=== PATIENT | female | born 1970 | race Caucasian/White ===

== ENCOUNTER 2019-09-14 20:07 | Emergency (ER) | payer BC, SELFPAY ==
--- NOTE | ~2019-09-14 | XR_ITS ---
EXAMINATION: XR chest 1V portable DATE: 09/14/2019 20:32 INDICATION: Palpitations TECHNIQUE: frontal view of the chest was obtained. COMPARISON: None FINDINGS: The lungs are clear with no focal airspace opacities, pulmonary edema, pleural effusion or pneumothor ax. The cardiomediastinal silhouette is normal. Visualized bones and soft tissues are unremarkable. IMPRESSION: 1. Normal chest radiograph. Reviewed, dictated and finalized at location A. LITY ATTENDANT IMPRESSION: 1. Normal chest radiograph.
[2019-09-14 20:12] VITALS: BP 117/96; PULSE 215; RESP 18; TEMP 36.7; O2SAT 100
[2019-09-14] MEDS: SODIUM CHLORIDE 0.9% IV 1,000 ML 999 ML (20:15)
--- NOTE | 2019-09-14 20:16 | ED.ARRPALP ---
HPI - Arrhythmia/Palpitations General Chief Complaint: Arrhythmia/Palpitations Stated Complaint: palpitations, dizzy Time Seen by Provider: 09/14/19 20:14 Source: patient and RN notes reviewed Mode of arrival: ambulatory Limitations: no limitations History of Present Illness HPI narrative: A 48 y/o female presents to the ED with intermittent heart palpitations and increased heart rate since 2 PM today. She states that she developed it while she was at work, so when she got home she took a nap which seemed to alleviate her palpitations. She notes she developed palpitations and a HR in the 200s while she was sitting on the couch, so she decided to come to the ED. She also notes some intermittent SOB .. She denies any CP, fevers, chills, N/V/D, ABD pain, back pain, or pain of any kind at this time. MD complaint: rapid heart beat and palpitations Onset (ago): hour(s) (6.5) Time: 14:00 Duration: intermittent Context: occurred during rest Associated symptoms: shortness of breath and other (heartburn) Related Data Allergies Allergy/AdvReac Type Severity Reaction Status Date / Time No Known Allergies Allergy Mild Unverified 05/09/05 20:17 Review of Systems Review of Systems: All systems reviewed & are unremarkable except as noted in HPI and below Constitutional: Constitutional: Denies chills and Denies fever(s) Cardiovascular: Cardiovascular: Denies chest pain, Reports rapid heart rate and Reports palpitations Respiratory: Respiratory: Reports dyspnea Gastrointestinal: Gastrointestinal: Denies abdominal pain, Reports heartburn, Denies diarrhea, Denies nausea and Denies vomiting Musculoskeletal: Musculoskeletal: Denies back pain PMFSH Past Medical History Medical History (Updated 09/14/19 @ 23:00 by Elias Chavez DO) Depression Hx of melanoma of skin Surgical History Surgical History (Updated 09/14/19 @ 20:39 by Fritz Garcia) History of dilation and curettage Hx of melanoma excision Previous section Social History Social History (Updated 09/14/19 @ 20:39 by Fritz Garcia) Smoking status: Never smoker Comments PCP: Dr. Lancaster. Exam Narrative: Exam Narrative: APPEARANCE: No acute distress, nontoxic, resting in bed EYES: EOMI HEENT: Normocephalic, atraumatic, OMM RESPIRATORY: No respiratory distress Clear to auscultation bilaterally with no rhonchi wheezing or rales. CARDIOVASCULAR: Tachycardic and regular without murmurs rubs or gallops. ABDOMINAL: Soft, nontender, nondistended, no rebound or guarding MUSCULOSKELETAl: Moves all extremities. No clubbing, cyanosis or edema. NEURO: Awake and alert. Following commands, speech normal, no focal deficits SKIN:: Warm, dry. No rashes lesions or abrasions PSYCHIATRIC: Normal affect/mood, Course Course Emergency Course: Called and discussed with Dr. lee presentation work-up. We discussed the patient's initial troponin. This time he feels the patient may be discharged home. Recommends patient be started metoprolol 12.5 mg twice daily. Believes troponin elevation is secondary to patient's elevated heart rate since 1400 Called back and discussed with Dr. lee following the patient's repeat troponin. This time still feels likely secondary to SVT with patient having no chest pain with the symptoms feels patient will be discharged with follow-up as an outpatient Discussed with patient results of workup and diagnosis. Discussed need for follow-up with primary care, proper use of medication, and reasons to return to the emergency department. Patient understands and agrees to current treatment plan Prior to discharge again discussed with patient. States she never had any episode of chest pain with SVT Vital Signs Vital signs: Vital Signs Temperature 98.1 F 09/14/19 20:12 Pulse Rate 215 H 09/14/19 20:12 Respiratory Rate 18 09/14/19 20:12 Blood Pressure 117/96 H 09/14/19 20:12 Pulse Oximetry 100 09/14/19 20:12 Temperature 98.1 F 09/14/19 20:12
[2019-09-14] MEDS: ADENOSINE IV SOLN 6 MG/2 ML VIAL 12 MG (20:20)
--- NOTE | 2019-09-14 20:26 | PC.NURSE ---
At 2015 EDP in room with patient, this nurse and 3 other RN's. EDP perform's vagal maneuver with no success. 2017VORB EDP orders 6mg of Adenosine rapid IVP. Success with rapid IVP of adenosine with EDP at bedside. Patient tolerated well.
--- NOTE | 2019-09-14 20:34 | ECG_ITS ---
Measurements Intervals [place] Rate: 215 P: [place]: 0 QRS: 109 QRSD: 84 T: 265 QT: 196 QTc: 371 Interpretive Statements SUPRAVENTRICULAR TACHYCARDIA ST-T WAVE ABNORMALITY IN ANTEROLAT/INF LEADS- CONSIDER ISCHEMIA OR RATE RELATED BASELINE WANDER- I, II, AVR, AVL, AVF ABNORMAL ECG Electronically Signed On 09-15-2019 6:39:57 SET UP WORKER by Taz Nava D.O.
--- NOTE | 2019-09-14 20:34 | ECG_ITS ---
Measurements Intervals [place] Rate: 111 P: 67 HI: 124 QRS: 29 QRSD: 93 T: 51 QT: 303 QTc: 413 Interpretive Statements SINUS TACHYCARDIA ABNORMAL ECG Electronically Signed On 09-15-2019 6:40:19 BORDER INSPECTOR by Taz Nava D.O.
[2019-09-14 20:40] LABS: Basophils Absolute Auto 0.1 K/mm3 (0.0-0.1); Eosinophils Absolute Auto 0.3 K/mm3 (0-0.3); Eosinophils Percent Auto 3.2 % (0-4.4); Hematocrit 43.1 % (37.0-47.0); Hemoglobin 14.3 g/dL (12.0-15.0); Immature Granulocyte Absolute 0.02 K/mm3 (0.00-0.031); Immature Granulocyte Percent A 0.2 % (0-0.5); Lymphocytes Absolute Auto 2.96 K/mm3 (0.9-3.2); Lymphocytes Percent Auto 32.5 % (18.3-44.2); Mean Corpuscular HGB Conc 33.2 g/dl (32-36); Mean Corpuscular Hemoglobin 30.4 pg (26-34); Mean Corpuscular Volume 91.7 fl (80-100); Mean Platelet Volume 9.1 fl (7.4-10.4); Monocytes Absolute Auto 0.9 K/mm3 (0.1-0.6); Monocytes Percent Auto 9.8 % (2.6-8.5); Neutrophils Absolute Auto 4.9 K/mm3 (1.3-6.7); Neutrophils Percent Auto 53.3 % (45.5-73.1); Platelet Count Result 404 k/mm3 (150-375); Red Cell Distribution Width 12.3 % (11.5-14.5); White Blood Count 9.1 K/mm3 (4.5-10.0)
[2019-09-14 20:50] LABS: INR 0.9; Partial Thromboplastin Time 26.1 SECONDS (22.3-36.8); Prothrombin Time 11.7 Seconds (11.1-14.7)
[2019-09-14 20:51] LABS: Alanine Aminotransferase 17 U/L (4-35); Albumin Level 4.5 g/dL (3.5-5.1); Alkaline Phosphatase 53 U/L (38-126); Aspartate Amino Transferase 18 U/L (14-36); Bilirubin,Total 0.3 mg/dL (0.2-1.3); Blood Urea Nitrogen 12 mg/dL (7-17); Calcium 9.4 mg/dL (8.4-10.2); Carbon Dioxide 27 mmol/L (22-30); Chloride 98 mmol/L (98-107); Estimated Glomerular Filt Rate > 60; Glucose 99 mg/dL (65-105); Magnesium 1.7 mg/dL (1.6-2.3); Potassium 3.6 mmol/L (3.4-5.0); Sodium 135 mmol/L (137-145)
[2019-09-14 21:07] LABS: Troponin I 0.258 ng/mL (0.000-0.034)
[2019-09-14 22:20] VITALS: PULSE 91
[2019-09-14] MEDS: METOPROLOL TARTRATE 12.5 MG TABLET PO (22:20)
[2019-09-14 23:35] LABS: Troponin I 0.506 ng/mL (0.000-0.034)
--- NOTE | 2019-09-14 23:38 | ECG_ITS ---
Measurements Intervals [place] Rate: 73 P: 63 AK: 156 QRS: 25 QRSD: 88 T: 26 QT: 380 QTc: 419 Interpretive Statements SINUS RHYTHM NORMAL ECG Electronically Signed On 09-15-2019 6:47:15 MUTUEL CLERK by Taz Nava D.O.
[2019-09-14 23:50] VITALS: PULSE 80; RESP 20; O2SAT 100
[2019-09-15 00:17] VITALS: BP 110/75; PULSE 81; RESP 17; O2SAT 100
== END 2019-09-15 00:15 | disposition home or self-care (01) ==
PROVIDERS: Emergency Provider Emergency Medicine; PCP Family Medicine
DX: R00.0 Tachycardia, unspecified (principal); F32.9 Major depressive disorder, single episode, unspecified
CPT/HCPCS: 36415; 71045; 80053; 83735; 84484; 85025; 85610; 85730; 93005; 96361; 96374; 99284; A9270; J0153; J7030

== ENCOUNTER 2019-09-22 14:36 | Outpatient (CLI) | payer BC, SELFPAY ==
--- NOTE | 2019-09-22 14:50 | ECHO_ITS ---
Patient Info Name: Cindy Hanks Age: 48 years : 1970 Gender: Female Ht: 66 in Wt: 191 lbs BSA: 2.04 m2 HR: 70 bpm BP: 128 / 80 mmHg Heart Rhythm: Sinus Rhythm Technical Quality: Good Exam Date: 09/22/2019 3:13 PM Exam Location: [facility] Patient Status: Outpatient Admit Date: 09/22/2019 Staff Ordering Physician: Taz Nava DO Supply Chain Project Manager: Panchito Joya RDCS Attending Provider: Taz Nava DO Referring Physician: Elijah REECE; Exam Type: CA echo doppler color flow Study Info Indications I47.1 - Supraventricular tachycardia Complete two-dimensional, color flow and Doppler transthoracic echocardiogram is performed. Strain analysis performed. History/Risk Factors Supraventricular tachycardia. Summary 1. Left ventricular chamber dimension is normal. 2. Left ventricular systolic function is normal, estimated at 60-65%. 3. The left ventricular diastolic function is normal. 4. E/e' 7 is not elevated. 5. Global longitudinal strain is normal at -20.6%. 6. There is trace mitral valve regurgitation. 7. No pulmonary hypertension, estimated pulmonary arterial systolic pressure is 30 mmHg. Left Ventricle E/e' 7 is not elevated. Global longitudinal strain is normal at -20.6%. Left ventricular chamber dimension is normal. Left ventricular systolic function is normal, estimated at 60-65%. The left ventricular diastolic function is normal. Right Ventricle Right ventricular chamber dimension is normal. Right ventricular systolic function is normal. Left Atria Left atrial chamber dimension is normal. Right Atria Right atrial chamber dimension is normal. Aortic Valve The aortic valve is trileaflet. There is no aortic valve stenosis. There is no aortic valve regurgitation. Pulmonic Valve There is no pulmonic regurgitation. Mitral Valve There is no mitral valve stenosis. There is trace mitral valve regurgitation. Tricuspid Valve There is no tricuspid valve regurgitation. No pulmonary hypertension, estimated pulmonary arterial systolic pressure is 30 mmHg. Pericardium/Pleural There is no pericardial effusion. Inferior Vena Cava Normal inferior vena cava with >50% collapse upon inspiration consistent with normal right atrial pressure, 5 mmHg. Aorta The aortic root size at the sinus of Valsalva is normal. Left Ventricular Outflow Tract Name Value Normal LVOT 2D LVOT Diameter 1.8 cm LVOT Doppler LVOT Peak Gradient 6 mmHg LVOT Mean Gradient 3 mmHg LVOT VTI 23 cm LVOT VTI/AV VTI Ratio 0.7 LVOT Stroke Volume 61 ml LVOT CO 4.1 l/min LVOT CI 2.0 l/min/m2 Mitral Valve Name Value Normal MV Doppler
== END 2019-09-22 14:37 | disposition home or self-care (01) ==
LOC: ANHCARD 14:37
PROVIDERS: PCP Family Medicine; Visit Provider Internal Medicine Cardiovascular Disease
DX: I47.1 Supraventricular tachycardia (principal)
CPT/HCPCS: 93306

== ENCOUNTER 2020-04-16 20:10 | Emergency (ER) | payer BC, SELFPAY ==
--- NOTE | ~2020-04-16 | XR_ITS ---
XR chest 1V portable DATE: 04/16/2020 20:41 INDICATION: Arrhythmia TECHNIQUE: Portable AP chest on 04/16/2020 at 2038 hours COMPARISON: 09/14/2019 portable AP chest at 2028 hours FINDINGS: Normal heart size. No hilar or mediastinal enlargement. No pulmonary infiltrate or consolid ation, pleural effusion or pulmonary vascular congestion or pneumothorax. IMPRESSION: No active cardiopulmonary disease Reviewed, dictated and finalized at location A.
[2020-04-16 20:16] VITALS: BP 143/88; PULSE 215; RESP 20; TEMP 37.5; O2SAT 99
--- NOTE | 2020-04-16 20:19 | ECG_ITS ---
Measurements Intervals [place] Rate: 215 P: [place]: 0 QRS: 64 QRSD: 89 T: 266 QT: 197 QTc: 372 Interpretive Statements SUPRAVENTRICULAR TACHYCARDIA ST-T WAVE ABNORMALITY IN DIFFUSE LEADS- CONSIDER ISCHEMIA OR RATE RELATED ABNORMAL ECG Electronically Signed On 04-17-2020 8:20:29 CDT by Taz Nava D.O.
--- NOTE | 2020-04-16 20:26 | PC.NURSE ---
adenosine 6mg ivp by dr aden 2024
[2020-04-16 20:27] VITALS: BP 153/91; PULSE 112; RESP 18; O2SAT 99
--- NOTE | 2020-04-16 20:30 | ECG_ITS ---
Measurements Intervals [place] Rate: 103 P: 59 NC: 158 QRS: 64 QRSD: 90 T: 30 QT: 344 QTc: 451 Interpretive Statements SINUS TACHYCARDIA POSSIBLE LEFT ATRIAL ENLARGEMENT LOW QRS VOLTAGE IN PRECORDIAL LEADS BORDERLINE ECG Electronically Signed On 04-21-2020 12:42:38 CDT by Taz Nava D.O.
--- NOTE | 2020-04-16 20:30 | ED.ARRPALP ---
HPI - Arrhythmia/Palpitations General Chief Complaint: Arrhythmia/Palpitations Stated Complaint: heart racing Time Seen by Provider: 04/16/20 20:20 History of Present Illness HPI narrative: Patient is a 49-year-old female who presents ER with tachycardia. Patient has history of SVT and has not been taking her medications for a week. 30 minutes prior to arrival she began to feel her heart race. She has no chest pain or chest pressure. No shortness of breath. She has no lightheadedness. She reports she is had some coffee today but denies any other stimulants. Has had this several times in the past. Follows with Dr. Nava. Has not seen a project management consultant. She is unsure if she has had her thyroid checked. Related Data Allergies Allergy/AdvReac Type Severity Reaction Status Date / Time No Known Allergies Allergy Mild Verified 04/16/20 20:20 Review of Systems Review of Systems: All systems reviewed & are unremarkable except as noted in HPI and below Cardiovascular: Cardiovascular: Denies chest pain, Reports rapid heart rate and Denies radiating jaw, neck or arm pain Respiratory: Respiratory: Denies cough, Denies dyspnea and Denies wheezing Gastrointestinal: Gastrointestinal: Denies nausea and Denies vomiting Neurologic: Denies dizziness, Denies focal weakness and Denies numbness PMFSH Past Medical History Medical History (Updated 04/16/20 @ 22:16 by Mohit Fuchs MD) Depression Hx of melanoma of skin PSVT (paroxysmal supraventricular tachycardia) Surgical History Surgical History (Updated 09/14/19 @ 20:39 by Fritz Garcia) History of dilation and curettage Hx of melanoma excision Previous section Social History Social History (Updated 09/17/19 @ 13:14 by Jacqui العراقي CMA) Smoking status: Never smoker Alcohol intake: current Exam Narrative: Exam Narrative: GENERAL: Well-appearing, well-nourished, and in no acute distress. HEAD: Normocephalic, atraumatic. ENT: Mucous membranes moist. CHEST: Clear to auscultation. No respiratory distress. HEART: Tachycardic and regular. Bounding pulses.. Normal peripheral pulses. ABDOMEN: Soft, nontender, nondistended. EXTREMITIES: Normal range of motion. No edema. SKIN: Warm, dry, no rash. NEURO: Alert and oriented x3. Course Course Emergency Course: Patient resting comfortably. Patient is been having heart rate around 101 and 102 bpm. No recurrence of SVT. Easily converted with 6 of adenosine. Discussed case with Dr. hang. Morrell with outpatient follow-up and patient should resume her metoprolol. Vital Signs Vital signs: Vital Signs Temperature 99.5 F 04/16/20 20:16 Pulse Rate 215 H 04/16/20 20:16 Respiratory Rate 20 04/16/20 20:16 Blood Pressure 143/88 H 04/16/20 20:16 Pulse Oximetry 99 04/16/20 20:16 Temperature 99.5 F 04/16/20 20:16 Pulse Rate 103 H 04/16/20 21:04 Respiratory Rate 17 04/16/20 21:04 Blood Pressure 159/88 H 04/16/20 21:04 Pulse Oximetry 98 04/16/20 21:04 MDM - Arrhythmia/Palpitations Lab Data Result diagrams: 04/16/20 20:31 04/16/20 20:32 Labs: Lab Results 04/16/20 04/16/20 04/16/20 Range/Units 20:31 20:31 20:31 WBC 8.8 (4.5-10.0) K/mm3 RBC 4.37 (4.2-5.4) M/mm3 Hgb 13.5 (12.0-15.0) g/dL Hct 39.8 (37.0-47.0) % MCV 91.1 (80-100) fl MCH 30.9 (26-34) pg MCHC 33.9 (32-36) g/dl RDW 12.2 (11.5-14.5) % Plt Count 410 H (150-375) k/mm3 MPV 8.6 (7.4-10.4) fl Immature Gran % (Auto) 0.2 (0-0.5) % Neut % (Auto) 46.9 (45.5-73.1) % Lymph % (Auto) 36.2 (18.3-44.2) % Pepin % (Auto) 9.2 H (2.6-8.5) % Eos % (Auto) 6.4 H (0-4.4) % Baso % (Auto) 1.1 (0.2-1.2) % Lymph # (Auto) 3.18 (0.9-3.2) K/mm3 Pepin # (Auto) 0.8 H (0.1-0.6) K/mm3 Eos # (Auto) 0.6 H (0-0.3) K/mm3 Baso # (Auto) 0.1 (0.0-0.1) K/mm3 Abs Immat Gran (auto) 0.02 (0.00-0.031) K/mm3 Absolute
[2020-04-16 20:47] LABS: Basophils Absolute Auto 0.1 K/mm3 (0.0-0.1); Basophils Percent Auto 1.1 % (0.2-1.2); Eosinophils Absolute Auto 0.6 K/mm3 (0-0.3); Eosinophils Percent Auto 6.4 % (0-4.4); Hematocrit 39.8 % (37.0-47.0); Hemoglobin 13.5 g/dL (12.0-15.0); Immature Granulocyte Absolute 0.02 K/mm3 (0.00-0.031); Immature Granulocyte Percent A 0.2 % (0-0.5); Lymphocytes Absolute Auto 3.18 K/mm3 (0.9-3.2); Lymphocytes Percent Auto 36.2 % (18.3-44.2); Mean Corpuscular HGB Conc 33.9 g/dl (32-36); Mean Corpuscular Hemoglobin 30.9 pg (26-34); Mean Corpuscular Volume 91.1 fl (80-100); Mean Platelet Volume 8.6 fl (7.4-10.4); Monocytes Absolute Auto 0.8 K/mm3 (0.1-0.6); Monocytes Percent Auto 9.2 % (2.6-8.5); Neutrophils Absolute Auto 4.1 K/mm3 (1.3-6.7); Neutrophils Percent Auto 46.9 % (45.5-73.1); Platelet Count Result 410 k/mm3 (150-375); Red Blood Count 4.37 M/mm3 (4.2-5.4); Red Cell Distribution Width 12.2 % (11.5-14.5); White Blood Count 8.8 K/mm3 (4.5-10.0)
[2020-04-16] MEDS: ADENOSINE IV SOLN 6 MG/2 ML VIAL 18 MG (20:52)
[2020-04-16] MEDS: SODIUM CHLORIDE 0.9% IV 1,000 ML 999 ML (20:52)
[2020-04-16 20:57] LABS: INR 0.9; Prothrombin Time 12.2 Seconds (11.1-14.7)
[2020-04-16 20:58] LABS: Partial Thromboplastin Time 24.5 SECONDS (22.3-36.8)
[2020-04-16 20:59] LABS: Anion Gap 10 mmol/L (8-16); Blood Urea Nitrogen 12 mg/dL (7-17); Calcium 8.9 mg/dL (8.4-10.2); Carbon Dioxide 22 mmol/L (22-30); Chloride 106 mmol/L (98-107); Estimated Glomerular Filt Rate > 60; Glucose 107 mg/dL (65-105); Potassium 3.8 mmol/L (3.4-5.0); Sodium 138 mmol/L (137-145)
[2020-04-16 21:04] VITALS: BP 159/88; PULSE 103; RESP 17; O2SAT 98
[2020-04-16 21:12] LABS: Troponin I < 0.012 ng/mL (0.000-0.034)
[2020-04-16 22:20] VITALS: BP 106/69; PULSE 98; RESP 22; O2SAT 99
[2020-04-16 23:00] LABS: Free T4 Free Thyroxine Reflex 1.07 ng/dL (0.78-2.19)
[2020-04-16 23:52] LABS: Total Triiodothyronine (T3) 1.29 NG/ML (0.97-1.69)
== END 2020-04-16 22:21 | disposition home or self-care (01) ==
PROVIDERS: Emergency Provider Emergency Medicine; PCP Family Medicine
DX: I47.1 Supraventricular tachycardia (principal); Z85.820 Personal history of malignant melanoma of skin; R94.31 Abnormal electrocardiogram [ECG] [EKG]
CPT/HCPCS: 36415; 71045; 80048; 84439; 84443; 84480; 84484; 85025; 85610; 85730; 93005; 96374; 99284; J0153; J7030

== ENCOUNTER 2020-04-21 14:11 | Outpatient (CLI) | payer BC, SELFPAY ==
[2020-04-21 14:42] LABS: Cholesterol 232 mg/dL (0-200); HDL Direct 92 mg/dL; Triglycerides 86 mg/dL (<150)
[2020-04-21 14:52] LABS: LDL Cholesterol Direct 111 mg/dL
== END 2020-04-21 14:12 | disposition home or self-care (01) ==
PROVIDERS: PCP Family Medicine; Visit Provider Internal Medicine Cardiovascular Disease
DX: E66.3 Overweight (principal)
CPT/HCPCS: 36415; 80061

== ENCOUNTER → 2020-10-07 06:52 | Outpatient (CLI) | payer BC, SELFPAY ==
[2020-10-07 23:33] LABS: SARS-CoV-2 RNA PCR Negative
== END ==
PROVIDERS: PCP Family Medicine; Visit Provider Physician Assistant
DX: R05 Cough (principal); Z20.822 Contact with and (suspected) exposure to COVID-19
CPT/HCPCS: C9803; U0003; U0005

== ENCOUNTER 2023-03-06 11:17 | Outpatient (CLI) | payer BC, SELFPAY ==
[2023-03-06 13:15] LABS: LDL Cholesterol Direct 118 mg/dL
[2023-03-06 13:20] LABS: Alanine Aminotransferase 19 U/L (6-35); Albumin Level 4.5 g/dL (3.5-5.1); Alkaline Phosphatase 70 U/L (38-126); Anion Gap 9 mmol/L (8-16); Aspartate Amino Transferase 18 U/L (14-36); Bilirubin,Total 0.4 mg/dL (0.2-1.3); Blood Urea Nitrogen 10 mg/dL (7-17); Calcium 9.5 mg/dL (8.4-10.2); Carbon Dioxide 26 mmol/L (22-30); Chloride 103 mmol/L (98-107); Cholesterol 242 mg/dL (0-200); Estimated Glomerular Filt Rate > 60; Glucose 92 mg/dL (65-110); HDL Direct 71 mg/dL; Potassium 4.4 mmol/L (3.4-5.0); Sodium 138 mmol/L (137-145); Triglycerides 72 mg/dL (<150)
== END 2023-03-06 11:18 | disposition home or self-care (01) ==
PROVIDERS: PCP Family Medicine; Visit Provider Physician Assistant
DX: R53.83 Other fatigue (principal); E78.2 Mixed hyperlipidemia
CPT/HCPCS: 36415; 80053; 80061; 84439; 84443

== ENCOUNTER 2023-06-23 00:38 | Day surgery (SDC) | payer BC, SELFPAY ==
[2023-06-13 08:55] VITALS: BMI 33.7
--- NOTE | 2023-06-20 09:20 | SUR.PREOP ---
Patient called regarding upcoming procedure. Reviewed preop instructions, appointment times, and procedure prep.
--- NOTE | 2023-06-22 10:53 | P.HP_ITS ---
History of Present Illness History of Present Illness Consent: Risks, benefits, and alternatives have been discussed and questions answered. Patient agrees to proceed with procedure. Chief complaint: neoplasm screening Narrative: Cindy Hanks is a 52 year old female Referred for colon cancer screening. Review of Systems Review of Systems: All systems reviewed & are unremarkable except as noted in HPI and below PMFSH Past Medical History Medical History Depression Herpes genitalis Hx of melanoma of skin PSVT (paroxysmal supraventricular tachycardia) Screening mammogram for breast cancer Surgical History Surgical History H/O LEEP History of dilation and curettage Hx of melanoma excision Hx of prior ablation treatment Previous section Family History Family History Father Hypertension Other Cerebrovascular accident Depression Diabetes mellitus Heart disease Social History Social History Smoking status: Never smoker Second hand tobacco smoke exposure: No Alcohol intake: current Drinks per week: 5 Substance use: never Substance use type: does not use Lack of Transportation: No Lack of Food: Never True Current Housing: I Have Housing Concerned About Future Housing: No Difficulty Paying Gas/Electric Bills: No Difficulty Paying for Meds: No Currently Unemployed: No Living arrangements: with family Occupation/Education: occupation 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 Gender identity (if verbalized by the patient): Female Sexual Orientation (if Verbalized by the Patient): Straight or Heterosexual Spiritual care concerns: No Agree to blood products: Yes Meds Home Medications and Allergies Home Medications Medication Instructions Recorded Confirmed Type escitalopram oxalate 10 mg tablet 10 mg PO DAILY #90 tabs 10/22/22 06/23/23 Rx Allergies Allergy/AdvReac Type Severity Reaction Status Date / Time No Known Allergies Allergy Mild Verified 06/23/23 08:30 Exam Resp: Auscultation: clear to auscultation bilaterally Cardio: Rate: regular rate Rhythm: regular rhythm GI: GI Palp: Yes Soft to palpation and No Tenderness to palpation present (GI) Assessment and Plan Assessment and plan (1) Colon cancer screening: Code(s): Z12.11 - Encounter for screening for malignant neoplasm of colon Status: Acute Assessment and Plan: Colonoscopy with possible biopsy or polypectomy or cautery or injection of substances.
[2023-06-23 08:31] VITALS: BP 133/80; PULSE 79; RESP 16; TEMP 36.2; O2SAT 100
[2023-06-23] MEDS: LACTATED RINGERS 1,000 ML 150 ML IV CONT (08:38)
[2023-06-23 10:09] VITALS: BP 113/68; PULSE 71; RESP 16; O2SAT 100
[2023-06-23 10:19] VITALS: BP 120/82; PULSE 64; RESP 16; O2SAT 100
[2023-06-23 10:29] VITALS: BP 124/87; PULSE 65; RESP 17; O2SAT 100
== END 2023-06-23 10:30 | disposition home or self-care (01) ==
PROVIDERS: PCP Family Medicine; Visit Provider Internal Medicine Gastroenterology
PROC: 0DJD8ZZ Inspection of Lower Intestinal Tract, Via Natural or Artificial Opening Endoscopic (ICD-10-PCS; CPT 45378; principal; 2023-06-23 10:00)
DX: Z12.11 Encounter for screening for malignant neoplasm of colon (principal); Z85.820 Personal history of malignant melanoma of skin; Z82.49 Family history of ischemic heart disease and other diseases of the circulatory system
CPT/HCPCS: 45378; J2704; J7120

== ENCOUNTER 2024-02-19 15:11 | Outpatient (CLI) | payer BC, SELFPAY ==
--- NOTE | ~2024-02-19 | MM_ITS ---
EXAMINATION: MM screening richard BI w marco antonio HISTORY: Screening TECHNIQUE: Craniocaudal and mediolateral oblique 3-D tomosynthesis images were obtained and synthetic 2-D images were generated. CAD analysis was submitted and interpreted. COMPARISON: Comparison to multiple prior studies sequentially, with oldest reviewed study dated 07/11. BREAST PARENCHYMAL COMPOSITION: Not dense: There are scattered areas of fibroglandular density. FINDINGS: There is no evidence of suspicious mass, calcification, or architectural distortion to sugg est malignancy in either breast. There has been no suspicious interval change. IMPRESSION: 1. No mammographic evidence of malignancy. 2. Recommend routine screening mammography in one year. BI-RADS Category 1: Negative Reviewed, dictated and finalized at location B.
== END 2024-02-19 15:12 ==
LOC: MICIMG 15:11
PROVIDERS: PCP Student in an Organized Health Care Education/Training Program; Visit Provider Student in an Organized Health Care Education/Training Program
DX: Z12.31 Encounter for screening mammogram for malignant neoplasm of breast (principal)
CPT/HCPCS: 77063; 77067

== ENCOUNTER 2025-05-11 16:00 | Outpatient (CLI) | payer BC, SELFPAY ==
--- NOTE | ~2025-05-11 | MM_ITS ---
EXAMINATION: MM screening richard BI w marco antonio HISTORY: Screening TECHNIQUE: Craniocaudal and mediolateral oblique 3-D tomosynthesis images were obtained and synthetic 2-D images were generated. CAD analysis was submitted and interpreted. COMPARISON: Comparison to multiple prior studies sequentially, with oldest reviewed study dated 06/25/2017. BREAST PARENCHYMAL COMPOSITION: Not dense: There are scattered areas of fibroglandular density. FINDINGS: The left breast is stable without evidence for malignancy. There is a new focal area of asymmetry/architectural distortion upper outer quadrant of the right breast, anterior third. There is an additional subareolar mass. IMPRESSION: 1. New focal right breast asymmetry/architectural distortion. Additional subareolar mass of the right breast. 2. Additional mammographic views and possible breast ultrasound are recommended. BI-RADS Category 0: Incomplete: Needs additional imaging evaluation. Reviewed, dictated and finalized at location B. IMPRESSION: 1. New focal right breast asymmetry/architectural distortion. Additional subare olar mass of the right breast. 2. Additional mammographic views and possible breast ultrasound are recommended . BI-RADS Category 0: Incomplete: Needs additional imaging evaluation.
== END 2025-05-11 16:01 | disposition home or self-care (01) ==
LOC: MICIMG 16:00
PROVIDERS: PCP Family Medicine; Visit Provider Obstetrics & Gynecology
DX: Z12.31 Encounter for screening mammogram for malignant neoplasm of breast (principal); R92.8 Other abnormal and inconclusive findings on diagnostic imaging of breast
CPT/HCPCS: 77063; 77067

== ENCOUNTER 2025-06-02 13:42 | Outpatient (CLI) | payer BC, SELFPAY ==
--- NOTE | ~2025-06-02 | DEXA_ITS ---
Bone Density Report Name: MAXIMO CUELLAR Age: 54 Sex: Female Ethnicity: White Date of : 1970 Indication: postmenopausal; screening for osteoporosis; parental hip fracture; height loss; Referring Provider: NEYMAR RAMSAY Study: Bone densitometry was performed. Exam Date: June 02, 2025 Accession number: [id number] Bone Density: Region BMD T-score Z-score Classification AP Spine(L1-L4) 0.914 -1.2 -0.1 Osteopenia Femoral Neck (Left) 0.812 -0.3 0.7 Normal Total Hip (Left) 0.877 -0.5 0.2 Normal Femoral Neck (Right) 0.821 -0.3 0.8 Normal Total Hip (Right) 0.902 -0.3 0.4 Normal Total Hip Mean 0.890 -0.4 0.3 Normal World Health Organization criteria for BMD impression classify patients as: Normal (T-score at or above -1.0), Osteopenia (T-score between -1.0 and -2.5), or Osteoporosis (T-score at or below -2.5). 10-year Fracture Risk(1): Major Osteoporotic Fracture 11% Hip Fracture 0.1% Reported Risk Factors: [place] (), Neck BMD=0.812, BMI=28.7, parental fracture (1) FRAX(R) Version 3.08. Fracture probability calculated for an untreated patient. Fracture probability may be lower if the patient has received treatment. Clinical Information Provided by Patient: Parent has had a hip fracture Patient maximum height was 68 Menopause Age: 51 No regular weight bearing exercise Does not regularly consume dairy products Drinks caffeinated beverages Onset of menses at age 12 Number of children 2 Impression: The patient has low bone mass, based on the Total Spine T-score. The patient has an estimated ten-year risk of hip fracture of 0.1% and an estimated ten-year risk of major fracture of 11%, based on the WHO FRAX algorithm. The patient has risk factors, including: parental hip fracture. Discussion: BONE DENSITY IS LOW AT ONE OR MORE SKELETAL SITES. This patient's lowest T-score is low at one or more skeletal sites. It meets the World Health Organization's (WHO) criteria for ?low bone mass? (T-score between -1.0 and -2.5). The patient's 10-year risk of fracture as calculated by FRAX is less than the threshold where pharmacological therapy is recommended by the National Osteoporosis Foundation (NOF). However, all treatment decisions require clinical judgment and consideration of individual patient factors, including patient preferences, comorbidities, previous drug use, risk factors not captured in the FRAX model (e.g., frailty, falls, vitamin D deficiency, increased bone turnover, interval significant decline in bone density) and possible under or overestimation of fracture risk by FRAX. The patient should follow a healthful lifestyle (good nutrition with adequate calcium and vitamin D, and appropriate weight-bearing exercise). Follow-Up: Consider repeating this study in 2 to 3 years to reassess this patient's status, or sooner if there is some new clinical indication. Reported by: JULIANA on 06/02/2025 2:01:00 PM. Reviewed, dictated and finalized at location A.
== END 2025-06-02 13:43 | disposition home or self-care (01) ==
PROVIDERS: PCP Obstetrics & Gynecology; Visit Provider Student in an Organized Health Care Education/Training Program
DX: M85.88 Other specified disorders of bone density and structure, other site (principal); Z78.0 Asymptomatic menopausal state; Z13.820 Encounter for screening for osteoporosis
CPT/HCPCS: 77080

== ENCOUNTER 2025-06-24 07:35 | Outpatient (CLI) | payer BC, SELFPAY ==
--- NOTE | ~2025-06-24 | MMUS_ITS ---
EXAMINATION: MM diagnostic richard RT w marco antonio, US breast RT limited HISTORY: New right breast mass/architectural distortion TECHNIQUE: Additional 3-D tomosynthesis images of the right breast were performed and synthetic 2-D images were generated. CAD analysis was submitted and interpreted. High resolution Limited right breast ultrasound was performed. COMPARISON: Comparison to multiple prior studies sequentially, with oldest reviewed study dated 06/25/2017. BREAST PARENCHYMAL COMPOSITION: Not dense: There are scattered areas of fibroglandular density. FINDINGS: MAMMOGRAPHIC FINDINGS: New spiculated mass/architectural distortion upper outer quadrant of the right breast, anterior third. No suspicious calcifications. ULTRASOUND: Limited right breast ultrasound: At 11:00, 4 cm from the nipple there is an irregular shaped hypoechoic mass with ill-defined margins measuring approximately 2 cm. There is internal vascularity and mixed posterior attenuation. IMPRESSION: 1. Irregular shaped 2 cm vascular mass of the right breast 11:00, 4 cm from the nipple corresponding to the mammographic finding. 2. Ultrasound-guided right breast biopsy recommended. BI-RADS category 5, highly suggestive of malignancy. Reviewed, dictated and finalized at location B. CARE CENTER DIRECTOR IMPRESSION: 1. Irregular shaped 2 cm vascular mass of the right breast 11:00, 4 cm from the nipple corresponding to the mammographic finding. 2. Ultrasound-guided right breast biopsy recommended. BI-RADS category 5, highly suggestive of malignancy.
== END 2025-06-24 07:36 | disposition home or self-care (01) ==
LOC: MICIMG 07:35
PROVIDERS: PCP Family Medicine; Visit Provider Obstetrics & Gynecology
DX: N63.11 Unspecified lump in the right breast, upper outer quadrant (principal)
CPT/HCPCS: 76642; 77061; 77065; G0279

== ENCOUNTER 2025-07-05 07:45 | Outpatient (CLI) | payer BC, SELFPAY ==
--- NOTE | ~2025-07-05 | MMUS_ITS ---
PROCEDURE(S): US breast biopsy RT w image, MM post biopsy diagnostic RT INDICATION(S): N63.11 - Unspecified lump in the right breast, upper outer... COMPARISON(S): None. TECHNIQUE/FINDINGS: Informed consent was obtained. Under sterile conditions, 1% lidocaine was injected as local anesthetic. Lidocaine with epinephrine was utilized for more deep anesthesia. A skin martín was made with a scalpel, and a coaxial was placed with ultrasound guidance. Following that, multiple samples were obtained with a 14-gauge spring- loaded biopsy needle and sonographic guidance. No complications occurred. The patient tolerated the procedure well. A biopsy marker was placed in the biopsy bed at the end of the procedure. A two-view mammogram demonstrates the biopsy marker in the expected location. IMPRESSION: Status post ultrasound-guided core biopsy. Pathology is pending. Reviewed, dictated and finalized at location B. [facility] IMPRESSION: Status post ultrasound-guided core biopsy. Pathology is pending.
--- NOTE | 2025-07-05 09:58 | S_PTH ---
PATIENT: Cindy Hanks LOC: [facility] U#:[id number] AGE/SX: 54/F ROOM: RE07/05/[address]: Carrie Chávez MD : 1970 BED: DIS: 07/05/2025 SPEC #: [id number] RECD: 07/05/25 12:21 STATUS: SVITLANA REMari #: [id number] LISA: 07/05/25 09:[address]: Carrie Chávez DEPT: [facility] Surgical RECD BY: Cecilia May ENTERED: 07/05/25 12:21 SP TYPE: Surgical OTHR DR: Neema Lancaster, Tissues: A - Breast Biopsy Procedures: P63 Hematoxylin and Eosin Stain E-Cadherin Gross and Microscopic Level 4 ER-60 LA-60 MIB-60 HER 2-60 CK 5
== END 2025-07-05 07:46 | disposition home or self-care (01) ==
LOC: ANHFOHIMG 07:46
PROVIDERS: PCP Family Medicine; Visit Provider Surgery
DX: N31.1 Reflex neuropathic bladder, not elsewhere classified (principal); R92.8 Other abnormal and inconclusive findings on diagnostic imaging of breast
CPT/HCPCS: 19083; 77065; 88305; 88342; 88360; A4648